=== PATIENT | female | born 1995 | race Caucasian/White ===

== ENCOUNTER → 2023-06-27 06:28 | Day surgery (SDC) | payer BC, SELFPAY | LOC: GI 06:28 | PROVIDERS: ATTENDING PHYSICIAN Internal Medicine | DX: R10.30 Lower abdominal pain, unspecified (principal); K92.1 Melena; K20.90 Esophagitis, unspecified without bleeding; R13.10 Dysphagia, unspecified | CPT/HCPCS: 45378; 43239; 88305; 88342 ==